=== PATIENT | male | born 1990 | race Two or more races ===

== ENCOUNTER 2016-12-28 03:06 | Emergency (ER) | payer OTHER, BC ==
[2016-12-28 03:17] VITALS: BP 136/84
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
[2016-12-28] MEDS ORDERED: Cephalexin 500 MG Cap PO ONE (03:54)
[2016-12-28] MEDS ORDERED: Acetaminophen 325 MG Tab PO ONE (03:58)
== END 2016-12-28 04:17 | disposition home or self-care (01) ==
LOC: DL.ED 03:06
DX: S00.83XA Contusion of other part of head, initial encounter (principal); R93.0 Abnormal findings on diagnostic imaging of skull and head, not elsewhere classified; Y04.8XXA Assault by other bodily force, initial encounter; Y99.0 Civilian activity done for income or pay
CPT/HCPCS: 70486; 99284; A9270

== ENCOUNTER 2017-02-12 07:55 | Day surgery (SDC) | payer BC, OTHER ==
[2017-02-12] MEDS ORDERED: Lactated Ringers 1,000 ML IV SCH (08:45)
[2017-02-12] MEDS ORDERED: Simethicone Drops 40 MG/0.6 ML 30 ML Bottle ONE (09:56)
[2017-02-12] MEDS ORDERED: Lidocaine 2% 20 ML MDV INJECT ONE (10:01)
[2017-02-12] MEDS ORDERED: Glycopyrrolate 0.2 MG/ML 2 ML SDV IV ONE (10:01)
[2017-02-12] MEDS ORDERED: Propofol 1,000 MG/100 ML SDV IV ONE (10:01)
--- NOTE | 2017-02-12 12:11 | OR ---
DATE: 02/12/2017 PREOPERATIVE DIAGNOSIS: Bloody diarrhea. POSTOPERATIVE DIAGNOSIS: Normal colonoscopy. PROCEDURE: Colonoscopy with random biopsies. Of note, maybe a floppy cecum. ANESTHESIA: IV sedation. ESTIMATED BLOOD LOSS: None. BRIEF HISTORY: Mr. Donohue is a 26-year-old male, who had an early appendicitis, approximately 6 to 8 weeks ago, but he also had some bloody diarrhea, so there is concern that could he have some early inflammatory bowel disease. I had the opportunity to evaluate the patient preoperatively and give the risks, benefits. He agreed to proceed. DESCRIPTION OF PROCEDURE: IV sedation was begun. A time-out was performed. On perianal exam, there were no signs of lesions. I was able to do a rectal exam and his prostate was normal and no masses were noted. I then advanced the scope. His bowel prep initially looked not so good, but it was able to be easily cleared. I was able to get to the ileocecal valve, and interesting enough, it was a bit floppy. I did a biopsy of the cecum and then also of the ascending colon. There was no signs of inflammation, no ulcerations, or signs of chronic healing and the mucosa looked normal. The mucosa was biopsied both in the ascending, transverse, descending, as well as sigmoid and rectum. All these areas were without gross pathology. I retroflexed the scope and again the anus and the dentate line looked normal. I removed as much as the air all the way especially in the cecum because of his history of having that early appendicitis. Postop is abdomen was soft. We will monitor him closely. [facility] /[id number]
[2017-02-12 12:18] VITALS: BP 120/62
--- NOTE | 2017-02-13 04:35 | CN ---
SERVICE DATE: CHIEF COMPLAINT: Bloody diarrhea. HISTORY OF PRESENT ILLNESS: Mr. Mundo Donohue is a 26-year-old male, who I had the opportunity to evaluate earlier this year while he was hospitalized for some right lower quadrant pain. He had a CT scan at that time, which demonstrated may be some early appendicitis, but clinically he was significantly improved. On further inspection of the patient and discussion, the patient states he had intermittent bloody stools. He denied any family history of ulcerative colitis or Crohn disease and he had no other problems with diarrhea. Since this time in September, he states he has only had maybe one episode of some mild bloody stools, but he has really changed his lifestyle and actually lost about 15 to 20 pounds on a new diet. He states that he is feeling well. He has no other signs of bruising or bleeding dyscrasias. He has also not had any additional right lower quadrant pain. PAST MEDICAL HISTORY: ALLERGIES: None. CURRENT MEDICATIONS: Citalopram 10 mg a day. He has a sister and a brother alive and well. One brother in childbirth. He states his parents are alive and well. PAST SURGICAL HISTORY: His only history of surgery is that of having the shoulder surgery and clavicle. 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 REVIEW OF SYSTEMS: Since I have seen him he has had no new medical problems. He has had no shortness of breath or cough, heart pain, abdominal pain, or change in his bowel habits as I described above. He also denies any ankle edema or swelling. PHYSICAL EXAMINATION: General: GCS is 15. Neck: With no mass. Lungs: Clear. Heart: Rhythm is regular. Abdomen: Totally soft and nontender. No guarding. No rebound. Extremities: Ankles are free of edema. IMPRESSION AND PLAN: 1. Mr. Donohue is certainly is a candidate for colonoscopy. We want to make sure that he does not have any inflammatory bowel disease, and so I explained to him that we would do a colonoscopy and do random biopsies. I am pleased that the bloody stools have improved with his diet, but this will be to make sure there is no other gross pathology. I clearly discussed the risks with the patient to include, but not limited to, bleeding, infection, heart attack, , injury to structures not intended, possibility we can get to the cecum. Even with these risks, he wishes to proceed and is pleased that we are going to get this done. 2. History of shoulder surgery. 3. Questionable history of early appendicitis earlier this year. [facility] /[id number]
--- NOTE | 2017-03-07 12:27 | CN ---
SERVICE DATE: 03/06/2017 This is a phone conversation that I had with Mr. Donohue here on the 06 of March. I made the phone call to him at area code [phone]. The time of the discussion and the phone call was here at 2:14 p.m. Mr. Donohue is the patient that I was able to do a colonoscopy for some diarrhea. I did random biopsies throughout the colon and all the pathology report demonstrates there are no signs of any sort of colitis. I had the opportunity to call him as he has moved now to [place]. I discussed with him the path reports were benign. Interesting enough, the patient states that his diarrhea has slowly improved. He has made several changes in his dietary needs and explained to me that he is now taking some probiotic. He states the diarrhea is better. Now, what he is going to do is go ahead and monitor this a little bit closer and indeed if he does have any further worsening problems, he will go ahead and try to see a manager of financial reporting at that time. Again, this is a followup phone conversation that took about 5 minutes with Mundo Donohue. [facility] /[id number]
== END 2017-02-12 12:26 | disposition home or self-care (01) ==
LOC: DL.ENDO 07:55
PROVIDERS: ATTEND Surgery
DX: R19.7 Diarrhea, unspecified (principal); Z79.899 Other long term (current) drug therapy; Z98.890 Other specified postprocedural states
CPT/HCPCS: 45380; A9270; J2704; J7120; J3490